=== PATIENT | female | born 1940 | race Native Hawaiian/Other Pacific Islander ===

== ENCOUNTER 2016-11-29 16:33 | Outpatient (CLI) | payer OTHER ==
[2016-11-29] MEDS ORDERED: TUSSIGON OR (16:59)
[2016-11-29] MEDS ORDERED: CARB200T42 PO (17:00)
== END 2016-11-29 16:42 | disposition short-term general hospital (02) ==
LOC: AMB 16:33
DX: M25.562 Pain in left knee (principal); W01.0XXA Fall on same level from slipping, tripping and stumbling without subsequent striking against object, initial encounter; Y92.098 Other place in other non-institutional residence as the place of occurrence of the external cause
CPT/HCPCS: A0425; A0427

== ENCOUNTER 2016-11-29 16:43 | Emergency (ER) | payer OTHER ==
[~2016-11-29] VITALS: Ht 154.9 cm; Wt 57.6 kg
[2016-11-29] MEDS ORDERED: TUSSIGON OR (16:59)
[2016-11-29] MEDS ORDERED: CARB200T42 PO (17:00)
[2016-11-29 21:53] VITALS: BP 129/69; TEMP 98.9
== END 2016-11-29 21:55 | disposition short-term general hospital (02) ==
LOC: ED 16:43
DX: S79.192A Other physeal fracture of lower end of left femur, initial encounter for closed fracture (principal); Z96.652 Presence of left artificial knee joint; M97.12XA Periprosthetic fracture around internal prosthetic left knee joint, initial encounter; W18.39XA Other fall on same level, initial encounter; Y92.098 Other place in other non-institutional residence as the place of occurrence of the external cause
CPT/HCPCS: 96374; 96375; 96376; 99285; J1885; J2405

== ENCOUNTER 2016-11-29 22:05 | Outpatient (CLI) | payer OTHER ==
[~2016-11-29 22:05] MED LIST: CARB200T42 PO; TUSSIGON OR
== END 2016-11-29 23:16 | disposition short-term general hospital (02) ==
LOC: AMB 22:05
DX: S79.192A Other physeal fracture of lower end of left femur, initial encounter for closed fracture (principal); Z96.652 Presence of left artificial knee joint; M97.12XA Periprosthetic fracture around internal prosthetic left knee joint, initial encounter; W18.39XA Other fall on same level, initial encounter; Y92.098 Other place in other non-institutional residence as the place of occurrence of the external cause
CPT/HCPCS: A0425; A0427